=== PATIENT | female | born 1960 | race Caucasian/White ===

== ENCOUNTER → 2016-04-14 | Outpatient (CLI) | payer MEDICARE, OTHER ==
[~2016-04-14] MED LIST: CLINDAMYCIN HC300 MG PO; DURAGESIC 100 MC1 EA TD; ENSURE PLUS/RESO1 EA PO; LEVAQUIN500 MG PO; LOVENOX SY60 MG/0.6 SC; MORPHINE S100 MG/5 M PO; NEURONTIN 400400 MG PO; PHENERGAN 25 MG25 M1 PO; VITAMIN B-121000 MC3 PO
== END ==
LOC: CT 04-13 15:00
DX: C50.412 Malignant neoplasm of upper-outer quadrant of left female breast (principal); C77.3 Secondary and unspecified malignant neoplasm of axilla and upper limb lymph nodes; C79.51 Secondary malignant neoplasm of bone; C78.00 Secondary malignant neoplasm of unspecified lung; C79.2 Secondary malignant neoplasm of skin; C78.7 Secondary malignant neoplasm of liver and intrahepatic bile duct; M79.606 Pain in leg, unspecified; M79.89 Other specified soft tissue disorders; R06.02 Shortness of breath; R10.9 Unspecified abdominal pain; Z79.899 Other long term (current) drug therapy; G89.29 Other chronic pain; D50.9 Iron deficiency anemia, unspecified; K90.9 Intestinal malabsorption, unspecified; R16.1 Splenomegaly, not elsewhere classified
CPT/HCPCS: 71260; 74160; J7050; Q9962

== ENCOUNTER → 2016-06-29 | Outpatient (CLI) | payer MEDICARE, OTHER | LOC: US 07:57 | DX: C50.412 Malignant neoplasm of upper-outer quadrant of left female breast (principal); D50.9 Iron deficiency anemia, unspecified; K90.9 Intestinal malabsorption, unspecified | CPT/HCPCS: 76705 ==

== ENCOUNTER → 2016-08-05 | Outpatient (CLI) | payer MEDICARE, OTHER ==
[2016-08-05 14:22] LABS: HEMOGLOBIN 11.8 gm/dl (12.3-15.3); RED BLOOD COUNT 3.81 M/UL (4.00-5.10); WHITE BLOOD COUNT 9.7 K/UL (4.5-11.0)
[2016-08-05 14:46] LABS: BUN/CREATININE RATIO 14 (0-10)
== END ==
LOC: CT 08-03 13:30 → LAB 13:56 → CT 14:30
PROVIDERS: Internal Medicine Hematology & Oncology
DX: C50.412 Malignant neoplasm of upper-outer quadrant of left female breast (principal); D50.9 Iron deficiency anemia, unspecified; R94.5 Abnormal results of liver function studies; E27.9 Disorder of adrenal gland, unspecified
CPT/HCPCS: 36415; 71260; 74160; 80053; 83735; 85025; J7050; Q9962

== ENCOUNTER 2016-10-19 04:33 | Inpatient (IN) | payer MEDICARE, OTHER ==
[~2016-10-19] VITALS: Ht 154.9 cm; Wt 59.9 kg
[~2016-10-19 04:33] MED LIST changes: -DURAGESIC 100 MC1 EA TD; -ENSURE PLUS/RESO1 EA PO; -LOVENOX SY60 MG/0.6 SC; -MORPHINE S100 MG/5 M PO; -NEURONTIN 400400 MG PO; -PHENERGAN 25 MG25 M1 PO; -VITAMIN B-121000 MC3 PO
[2016-10-19 07:12] LABS: HEMOGLOBIN 9.7 gm/dl (12.3-15.3); RED BLOOD COUNT 3.32 M/UL (4.00-5.10); WHITE BLOOD COUNT 3.4 K/UL (4.5-11.0)
[2016-10-19 07:26] LABS: BUN/CREATININE RATIO 24 (0-10)
[2016-10-19] MEDS ORDERED: DURAGESIC 100 MC1 EA TD (09:01)
[2016-10-19] MEDS ORDERED: NEURONTIN 400400 MG PO (09:02)
[2016-10-19] MEDS ORDERED: PHENERGAN 25 MG25 M1 PO (09:05)
[2016-10-19] MEDS ORDERED: MORPHINE S100 MG/5 M PO (09:21)
[2016-10-20 11:10] LABS: HEMOGLOBIN 9.7 gm/dl (12.3-15.3); RED BLOOD COUNT 3.34 M/UL (4.00-5.10)
[2016-10-21 04:00] LABS: HEMOGLOBIN 9.9 gm/dl (12.3-15.3); RED BLOOD COUNT 3.42 M/UL (4.00-5.10); WHITE BLOOD COUNT 3.2 K/UL (4.5-11.0)
[2016-10-21 04:28] LABS: BUN/CREATININE RATIO 8 (0-10)
[2016-10-22 04:47] LABS: HEMOGLOBIN 8.9 gm/dl (12.3-15.3); RED BLOOD COUNT 3.11 M/UL (4.00-5.10); WHITE BLOOD COUNT 2.8 K/UL (4.5-11.0)
[2016-10-23 05:14] LABS: BUN/CREATININE RATIO 20 (0-10)
[2016-10-24 03:54] LABS: HEMOGLOBIN 9.7 gm/dl (12.3-15.3); RED BLOOD COUNT 3.42 M/UL (4.00-5.10); WHITE BLOOD COUNT 2.6 K/UL (4.5-11.0)
[2016-10-24 04:12] LABS: BUN/CREATININE RATIO 23 (0-10)
[2016-10-25 03:39] LABS: HEMOGLOBIN 9.4 gm/dl (12.3-15.3); RED BLOOD COUNT 3.33 M/UL (4.00-5.10); WHITE BLOOD COUNT 2.3 K/UL (4.5-11.0)
[2016-10-25 03:58] LABS: BUN/CREATININE RATIO 30 (0-10)
[2016-10-26 03:42] LABS: HEMOGLOBIN 10.1 gm/dl (12.3-15.3); RED BLOOD COUNT 3.61 M/UL (4.00-5.10); WHITE BLOOD COUNT 2.4 K/UL (4.5-11.0)
[2016-10-26 04:23] LABS: BUN/CREATININE RATIO 33 (0-10)
[2016-10-27 03:54] LABS: HEMOGLOBIN 9.7 gm/dl (12.3-15.3); RED BLOOD COUNT 3.49 M/UL (4.00-5.10); WHITE BLOOD COUNT 2.7 K/UL (4.5-11.0)
[2016-10-27 04:34] LABS: BUN/CREATININE RATIO 35 (0-10)
[2016-10-28 04:38] LABS: RED BLOOD COUNT 3.23 M/UL (4.00-5.10); WHITE BLOOD COUNT 2.5 K/UL (4.5-11.0)
[2016-10-28 04:56] LABS: BUN/CREATININE RATIO 48 (0-10)
[2016-10-29] MEDS ORDERED: VITAMIN B-121000 MC3 PO (11:50)
[2016-10-29] MEDS ORDERED: LOVENOX SY60 MG/0.6 SC (11:54)
[2016-10-29] MEDS ORDERED: ENSURE PLUS/RESO1 EA PO (12:04)
== END 2016-10-29 11:11 | disposition home health service (06) | DRG 175 ==
LOC: CCU 04:33
PROVIDERS: Internal Medicine; ADMIT Internal Medicine
DX: I26.99 Other pulmonary embolism without acute cor pulmonale (principal); J96.01 Acute respiratory failure with hypoxia; D61.810 Antineoplastic chemotherapy induced pancytopenia; C79.51 Secondary malignant neoplasm of bone; C78.7 Secondary malignant neoplasm of liver and intrahepatic bile duct; I82.432 Acute embolism and thrombosis of left popliteal vein; I82.442 Acute embolism and thrombosis of left tibial vein; R57.9 Shock, unspecified; I27.2 Other secondary pulmonary hypertension; Y83.8 Other surgical procedures as the cause of abnormal reaction of the patient, or of later complication, without mention of misadventure at the time of the procedure; T45.1X5A Adverse effect of antineoplastic and immunosuppressive drugs, initial encounter; R07.81 Pleurodynia; Z90.12 Acquired absence of left breast and nipple; I50.9 Heart failure, unspecified; E83.42 Hypomagnesemia; E53.8 Deficiency of other specified B group vitamins; D69.6 Thrombocytopenia, unspecified; Z85.3 Personal history of malignant neoplasm of breast; I97.2 Postmastectomy lymphedema syndrome; Z87.891 Personal history of nicotine dependence; Z80.0 Family history of malignant neoplasm of digestive organs; Z79.899 Other long term (current) drug therapy
CPT/HCPCS: ECHO; 36415; 71010; 80048; 82550; 82553; 82607; 82746; 83735; 83921; 84132; 84484; 85025; 85027; 85610; 85730; 93005; 93306; 93970; G0008; J1650; J2270; J3420; J7030; Q2039